=== PATIENT | female | born 1950 | race Caucasian/White ===

== ENCOUNTER → 2017-09-10 | Outpatient (CLI) | payer BC ==
[2014-01-26 11:53] VITALS: BP 136/76
[~2017-09-10] MED LIST: BENADRYL ALLERG25 M1 PO; CALCIUM1 CAP PO; FLAXSEED OIL1 CAP PO; GOOD SENSE ASPI81 M1 PO; LEVOTHYROXIN0.088 MG PO; METOPROLOL TART25 MG PO; MULTIPLE VITAMI1 TAB PO; VITAMIN B COMPL1 T16 PO; VITAMIN D31000 IU PO
[2017-09-10 10:23] LABS: BASO # 0.1 (0.02-0.10); EOS # 0.3 (0.04-0.40); EOS % 5.8 % (1.0-5.0); HEMATOCRIT 43.6 % (37.0-47.0); HEMOGLOBIN 14.5 g/dL (12.5-16.0); MEAN CELL VOLUME 93 fl (78-100); MEAN CORPUSCULAR HEMOGLOBIN 31 pg (27-31); MEAN CORPUSCULAR HGB CONC 33 g/dL (33-37); MEAN PLATELET VOLUME 10.5 fl (7.4-10.4); MONO # 0.6 (0.20-0.80); NEU # 3.7 (1.40-6.50); PLATELET COUNT 247 K/mm3 (130-400); RED BLOOD COUNT 4.68 M/mm3 (4.10-5.30); RED CELL DISTRIBUTION WIDTH 13.6 % (11.5-14.5); WHITE BLOOD COUNT 5.7 K/mm3 (4.8-10.8)
[2017-09-10 10:40] LABS: ALBUMIN 3.9 g/dL (3.5-5.0); BUN/CREATININE RATIO 16.3 (6.0-26.0); CALCIUM 9.2 mg/dL (8.4-10.2); POTASSIUM 3.6 mmol/L (3.6-5.0); TOTAL BILIRUBIN 0.7 mg/dL (0.2-1.3)
[2017-09-10 12:03] LABS: ERYTHROCYTE SEDIMENTATION RATE 4 mm/hr (0-30)
[2017-09-11 07:16] LABS: CA-125 15.3 U/mL (0.0-35.0)
== END ==
LOC: LAB 09:58
PROVIDERS: Internal Medicine
DX: Z00.00 Encounter for general adult medical examination without abnormal findings (principal); R73.09 Other abnormal glucose; E78.2 Mixed hyperlipidemia; Z12.11 Encounter for screening for malignant neoplasm of colon

== ENCOUNTER → 2018-09-12 | Outpatient (CLI) | payer BC ==
[2014-01-26 11:53] VITALS: BP 136/76
[2018-09-12 15:48] LABS: EOS # 0.1 (0.04-0.40); EOS % 2.1 % (1.0-5.0); HEMATOCRIT 44.5 % (37.0-47.0); HEMOGLOBIN 14.8 g/dL (12.5-16.0); LYMPH# 1.2 (1.50-4.00); MEAN CELL VOLUME 94 fl (78-100); MEAN CORPUSCULAR HEMOGLOBIN 31 pg (27-31); MEAN CORPUSCULAR HGB CONC 33 g/dL (33-37); MEAN PLATELET VOLUME 10.9 fl (7.4-10.4); MONO # 0.4 (0.20-0.80); NEU # 3.5 (1.40-6.50); PLATELET COUNT 259 K/mm3 (130-400); RED BLOOD COUNT 4.74 M/mm3 (4.10-5.30); RED CELL DISTRIBUTION WIDTH 13.3 % (11.5-14.5); WHITE BLOOD COUNT 5.3 K/mm3 (4.8-10.8)
[2018-09-12 16:06] LABS: ALBUMIN 4.4 g/dL (3.5-5.0); CALCIUM 9.8 mg/dL (8.4-10.2); POTASSIUM 4.2 mmol/L (3.6-5.0); TOTAL BILIRUBIN 0.6 mg/dL (0.2-1.3)
[2018-09-12 16:53] LABS: ERYTHROCYTE SEDIMENTATION RATE 6 mm/hr (0-30)
[2018-09-13 08:41] LABS: C-REACTIVE PROTEIN XXX
== END ==
LOC: LAB 15:07
PROVIDERS: Internal Medicine
DX: Z12.11 Encounter for screening for malignant neoplasm of colon (principal); Z00.00 Encounter for general adult medical examination without abnormal findings; M85.89 Other specified disorders of bone density and structure, multiple sites

== ENCOUNTER → 2019-12-01 | Outpatient (CLI) | payer BC ==
[2014-01-26 11:53] VITALS: BP 136/76
[2019-12-01 12:44] LABS: EOS # 0.2 (0.04-0.40); EOS % 4.2 % (1.0-5.0); HEMATOCRIT 46.9 % (37.0-47.0); HEMOGLOBIN 15.2 g/dL (12.5-16.0); MEAN CELL VOLUME 95 fl (78-100); MEAN CORPUSCULAR HEMOGLOBIN 31 pg (27-31); MEAN CORPUSCULAR HGB CONC 32 g/dL (33-37); MEAN PLATELET VOLUME 10.3 fl (7.4-10.4); MONO # 0.5 (0.20-0.80); NEU # 3.8 (1.40-6.50); PLATELET COUNT 251 K/mm3 (130-400); RED BLOOD COUNT 4.96 M/mm3 (4.10-5.30); RED CELL DISTRIBUTION WIDTH 13.5 % (11.5-14.5); WHITE BLOOD COUNT 5.5 K/mm3 (4.8-10.8)
[2019-12-01 12:55] LABS: ALBUMIN 4.2 g/dL (3.4-4.8)
[2019-12-01 12:56] LABS: CALCIUM 9.6 mg/dL (8.3-10.5)
[2019-12-01 12:58] LABS: TOTAL PROTEIN 6.9 g/dL (6.2-8.1)
[2019-12-01 12:59] LABS: TOTAL BILIRUBIN 0.5 mg/dL (0.2-1.2)
[2019-12-01 13:39] LABS: ERYTHROCYTE SEDIMENTATION RATE 10 mm/hr (0-30)
[2019-12-02 00:07] LABS: CA-125 17.2 U/mL (0.0-35.0)
== END ==
LOC: LAB 12:25
PROVIDERS: Internal Medicine
DX: Z00.00 Encounter for general adult medical examination without abnormal findings (principal); Z15.09 Genetic susceptibility to other malignant neoplasm

== ENCOUNTER → 2020-07-29 | Outpatient (CLI) | payer BC ==
[2014-01-26 11:53] VITALS: BP 136/76
== END ==
LOC: MAMMO 12:30
DX: N64.51 Induration of breast (principal)

== ENCOUNTER → 2020-12-03 | Outpatient (CLI) | payer BC ==
[2014-01-26 11:53] VITALS: BP 136/76
[2020-12-03 15:29] LABS: EOS # 0.1 (0.04-0.40); EOS % 1.9 % (1.0-5.0); HEMATOCRIT 45.2 % (37.0-47.0); HEMOGLOBIN 14.4 g/dL (12.5-16.0); LYMPH# 1.1 (1.50-4.00); MEAN CELL VOLUME 94 fl (78-100); MEAN CORPUSCULAR HEMOGLOBIN 30 pg (27-31); MEAN CORPUSCULAR HGB CONC 32 g/dL (33-37); MONO # 0.4 (0.20-0.80); NEU # 4.2 (1.40-6.50); PLATELET COUNT 239 K/mm3 (130-400); RED BLOOD COUNT 4.82 M/mm3 (4.10-5.30); RED CELL DISTRIBUTION WIDTH 13.8 % (11.5-14.5); WHITE BLOOD COUNT 5.9 K/mm3 (4.8-10.8)
[2020-12-03 15:36] LABS: ALBUMIN 4.1 g/dL (3.4-4.8); POTASSIUM 4.1 mmol/L (3.5-5.1)
[2020-12-03 15:37] LABS: CALCIUM 9.2 mg/dL (8.3-10.5)
[2020-12-03 15:39] LABS: TOTAL PROTEIN 7.1 g/dL (6.2-8.1)
[2020-12-03 15:41] LABS: TOTAL BILIRUBIN 0.4 mg/dL (0.2-1.2)
[2020-12-03 17:49] LABS: ERYTHROCYTE SEDIMENTATION RATE 16 mm/hr (0-30)
[2020-12-04 01:43] LABS: T3 TOTAL 63 ng/dL (58-159)
== END ==
LOC: LAB 15:15
PROVIDERS: Internal Medicine
DX: E03.4 Atrophy of thyroid (acquired) (principal); E78.2 Mixed hyperlipidemia; M85.80 Other specified disorders of bone density and structure, unspecified site; K90.9 Intestinal malabsorption, unspecified

== ENCOUNTER → 2020-12-17 | Outpatient (CLI) | payer BC ==
[2014-01-26 11:53] VITALS: BP 136/76
== END ==
LOC: LAB 16:18
DX: E78.2 Mixed hyperlipidemia (principal)

== ENCOUNTER → 2021-12-06 | Outpatient (CLI) | payer MEDICARE | LOC: RAD 14:00 → VAS 14:04 → RAD 14:04 | DX: I08.1 Rheumatic disorders of both mitral and tricuspid valves (principal); I31.3 Pericardial effusion (noninflammatory); I48.0 Paroxysmal atrial fibrillation ==

== ENCOUNTER → 2021-12-23 | Outpatient (CLI) | payer MEDICARE | LOC: CARDREHAB 09:53 | DX: I48.0 Paroxysmal atrial fibrillation (principal) | CPT/HCPCS: A9500 ==

== ENCOUNTER → 2023-05-30 | Outpatient (CLI) | payer MEDICARE ==
[2023-05-30 12:25] LABS: POTASSIUM 3.8 mmol/L (3.5-5.1)
[2023-05-30 12:27] LABS: CALCIUM 9.4 mg/dL (8.3-10.5)
[2023-05-30 12:28] LABS: TOTAL PROTEIN 6.8 g/dL (6.2-8.1)
[2023-05-30 12:30] LABS: TOTAL BILIRUBIN 0.5 mg/dL (0.2-1.2)
[2023-05-30 12:35] LABS: MAGNESIUM 2.08 mg/dL (1.60-2.60)
== END ==
LOC: LAB 11:53
PROVIDERS: Internal Medicine
DX: I10 Essential (primary) hypertension (principal); E78.2 Mixed hyperlipidemia; E03.4 Atrophy of thyroid (acquired); M85.80 Other specified disorders of bone density and structure, unspecified site

== ENCOUNTER → 2023-12-07 | Outpatient (CLI) | payer MEDICARE ==
[2023-12-07 11:22] LABS: BASO # 0.02 K/mm3 (0.02-0.10); EOS # 0.16 K/mm3 (0.04-0.40); HEMATOCRIT 43.6 % (37.0-47.0); HEMOGLOBIN 14.3 g/dL (12.5-16.0); LYMPH# 1.13 K/mm3 (1.50-4.00); MEAN CELL VOLUME 94 fl (78-100); MEAN CORPUSCULAR HEMOGLOBIN 31 pg (27-31); MEAN CORPUSCULAR HGB CONC 33 g/dL (33-37); MEAN PLATELET VOLUME 10.1 fl (7.4-10.4); MONO # 0.51 K/mm3 (0.20-0.80); NEU # 3.56 K/mm3 (1.40-6.50); PLATELET COUNT 238 K/mm3 (130-400); RED BLOOD COUNT 4.65 M/mm3 (4.10-5.30); RED CELL DISTRIBUTION WIDTH 12.9 % (11.5-14.5); WHITE BLOOD COUNT 5.4 K/mm3 (4.8-10.8)
[2023-12-07 11:23] LABS: ALBUMIN 3.9 g/dL (3.4-4.8)
[2023-12-07 11:24] LABS: CALCIUM 9.4 mg/dL (8.3-10.5)
[2023-12-07 11:26] LABS: TOTAL PROTEIN 6.8 g/dL (6.2-8.1)
[2023-12-07 11:27] LABS: TOTAL BILIRUBIN 0.3 mg/dL (0.2-1.2)
[2023-12-07 11:32] LABS: MAGNESIUM 2.14 mg/dL (1.60-2.60)
[2023-12-07 21:45] LABS: HEPATITIS C VIRUS ANTIBODY Negative (Negative)
== END ==
LOC: LAB 10:37
PROVIDERS: Internal Medicine
DX: Z12.11 Encounter for screening for malignant neoplasm of colon (principal); Z11.59 Encounter for screening for other viral diseases; T78.3XXD Angioneurotic edema, subsequent encounter; I10 Essential (primary) hypertension; K90.9 Intestinal malabsorption, unspecified; E78.2 Mixed hyperlipidemia; M85.80 Other specified disorders of bone density and structure, unspecified site; R73.9 Hyperglycemia, unspecified; E03.4 Atrophy of thyroid (acquired)

== ENCOUNTER → 2024-12-09 | Outpatient (CLI) | payer MEDICARE ==
[2024-12-09 11:42] LABS: BASO # 0.03 K/mm3 (0.02-0.10); EOS # 0.15 K/mm3 (0.04-0.40); EOS % 2.8 % (1.0-5.0); HEMATOCRIT 43.4 % (37.0-47.0); HEMOGLOBIN 14.3 g/dL (12.5-16.0); LYMPH# 0.88 K/mm3 (1.50-4.00); MEAN CELL VOLUME 95 fl (78-100); MEAN CORPUSCULAR HEMOGLOBIN 31 pg (27-31); MEAN CORPUSCULAR HGB CONC 33 g/dL (33-37); MEAN PLATELET VOLUME 10.1 fl (7.4-10.4); NEU # 3.86 K/mm3 (1.40-6.50); PLATELET COUNT 222 K/mm3 (130-400); RED BLOOD COUNT 4.59 M/mm3 (4.10-5.30); RED CELL DISTRIBUTION WIDTH 12.9 % (11.5-14.5); WHITE BLOOD COUNT 5.4 K/mm3 (4.8-10.8)
[2024-12-09 11:48] LABS: SODIUM 140 mmol/L (136-145)
[2024-12-09 11:50] LABS: CALCIUM 9.3 mg/dL (8.3-10.5)
[2024-12-09 11:51] LABS: GLUCOSE 105 mg/dL (65-105)
[2024-12-09 11:52] LABS: CARBON DIOXIDE 25 mmol/L (23-31)
[2024-12-09 11:53] LABS: TOTAL BILIRUBIN 0.5 mg/dL (0.2-1.2)
[2024-12-09 11:56] LABS: AST-SGOT 19 U/L (5-34)
[2024-12-09 11:58] LABS: ALT/SGPT 17 U/L (0-55); MAGNESIUM 1.92 mg/dL (1.60-2.60)
== END ==
LOC: LAB 11:09
PROVIDERS: Internal Medicine
DX: Z12.11 Encounter for screening for malignant neoplasm of colon (principal); K90.9 Intestinal malabsorption, unspecified; M85.80 Other specified disorders of bone density and structure, unspecified site; E03.4 Atrophy of thyroid (acquired); E78.2 Mixed hyperlipidemia; I10 Essential (primary) hypertension; R73.9 Hyperglycemia, unspecified